=== PATIENT | male | born 1990 | race African-American/Black ===

== ENCOUNTER 2018-11-22 09:03 | Inpatient (IN) | payer OTHER ==
[2018-11-22 09:23] VITALS: BMI 22.6
--- NOTE | 2018-11-22 10:34 | HP ---
CIWA Score Nausea/Vomitin Muscle Tremors: 2 Anxiety: 2 Agitation: 2 Paroxysmal Sweats: 2 Orientation: 0-Oriented Tacttile Disturbances: 1-Very Mild Itch/Numbness Auditory Disturbances: 1-Very Mild Visual Disturbances: 0-None Headache: 2-Mild CIWA-Ar Total Score: 14 - Admission Criteria OASAS Guidelines: Admission for Medically Managed Detox: Requires at least one of the followin. CIWA greater than 12 2. Seizures within the past 24 hours 3. Delirium tremens within the past 24 hours 4. Hallucinations within the past 24 hours 5. Acute intervention needed for co occurring medical disorder 6. Acute intervention needed for co occurring psychiatric disorder 7. Severe withdrawal that cannot be handled at a lower level of care (continued vomiting, continued diarrhea, abnormal vital signs) requiring intravenous medication and/or fluids 8. Patient presents the following: CIWA greater than 12 Admission Criteria Met: Admission criteria met Admission ROS [facility] Chief Complaint: I need help to stop drinkg alcohol,cocaine Allergies/Adverse Reactions: Allergies Allergy/AdvReac Type Severity Reaction Status Date / Time No Known Drug Allergies Allergy Verified 11/22/18 09:57 History of Present Illness: this 28 years old male with alcohol and cocaine dependence seeking detox, withdrawal symptom,last treatment 05/31 ,not completed,did not recall facity nicotine dependence weight loss syncope longest sobriety 3 months plan to go to rehab seen in [place] last night Exam Limitations: No Limitations - Ebola screening Have you traveled outside of the country in the last 21 days: No Have you had contact with anyone from an Ebola affected area: No Have you been sick,other than usual withdrawal symptoms: No Do you have a fever: No - Review of Systems Constitutional: Loss of Appetite, Malaise, Night Sweats, Changes in sleep, Weakness, Unintentional Wgt. Loss EENT: reports: Tearing, Nose Congestion Respiratory: reports: No Symptoms reported Cardiac: reports: No Symptoms Reported GI: reports: Nausea, Poor Appetite, Abdominal cramping : reports: No Symptoms Reported Musculoskeletal: reports: Back Pain, Muscle Pain Integumentary: reports: Dryness Neuro: reports: Headache, Tremors Endocrine: reports: No Symptoms Reported Hematology: reports: No Symptoms Reported Psychiatric: reports: No Sypmtoms Reported, Judgement Intact, Mood/Affect Appropiate, Orientated x3 Other Systems: Reviewed and Negative Patient History - Patient Medical History Hx Asthma: No Hx Chronic Obstructive Pulmonary Disease (COPD): No Hx Cancer: No Hx Cardiac Disorders: No Hx Congestive Heart Failure: No Hx Hypertension: No Hx Hypercholesterolemia: No Hx Pacemaker: No HX Cerebrovascular Accident: No Hx Seizures: No Hx Dementia: No Hx Diabetes: No Hx Gastrointestinal Disorders: No Hx Liver Disease: No Hx Genitourinary Disorders: No Hx Sexually Transmitted Disorders: No Hx Renal Disease (ESRD): No Hx Thyroid Disease: No Hx Human Immunodeficiency Virus (HIV): No (last 2018 negctive) Hx Hepatitis C: No Hx Depression: No Hx Suicide Attempt: No Hx Bipolar Disorder: No Hx Schizophrenia: No Other Medical History: no suicidal,no homicidal - Patient Surgical History Past Surgical History: No Hx Neurologic Surgery: No Hx Cataract Extraction: No Hx Cardiac Surgery: No Hx Lung Surgery: No Hx Breast Surgery: No Hx Breast Biopsy: No Hx Abdominal Surgery: No Hx Appendectomy: No Hx Cholecystectomy: No Hx Genitourinary Surgery: No Hx Orthopedic Surgery: Yes (torn ACL repair in 2018) Anesthesia Reaction: No - PPD History Previous Implant?: No Documented Results: Negative w/o proof Implanted On Prior [facility] Admission?: No PPD to be Administered?: Yes - Smoking Cessation Smoking history: Current every day smoker Have you smoked in the past 12 months: Yes Aproximately how many cigarettes per day: 20 Cigars Per Day: 0 Hx Chewing Tobacco Use: No Initiated information on smoking cessation: Yes 'Breaking Loose' booklet given: 11/22/18 - Substance & Tx. History Hx Alcohol Use: Yes Hx Substance Use: Yes Substance Use Type: Alcohol, Cocaine Hx Substance Use Treatment: Yes (05/31 did not recll facility,not completed) - Substances Abused Alcohol Route: Oral Frequency: Daily Amount used: 1 liter of vodka Age of first use: 14 Date of Last Use: 11/21/18 Cocaine Route: Inhalation Frequency: Daily Amount used: 2 grams Age of first use: 23 Date of Last Use: 11/21/18 don Route: Oral Frequency: Daily Amount used: 0.5-1 gram Age of first use: 27 Date of Last Use: 11/21/18 Family Disease History - Family Disease History Family History: Denies Admission Physical Exam BHS - Vital Signs Vital Signs: Vital Signs - 24 hr 11/22/18 09:19 Temperature 96.2 F L Pulse Rate 83 Respiratory 20 Rate Blood Pressure 137/75 - Physical General Appearance: Yes: Moderate Distress, Tremorous, Irritable, Sweating, Anxious HEENTM: Yes: Normal ENT Inspection, Normocephalic, Normal Voice, SALMA Respiratory: Yes: Lungs Clear, Normal Breath Sounds, No Respiratory Distress Neck: Yes: Within Normal Limits, Supple, Trachea in good position Breast: Yes: Within Normal Limits Cardiology: Yes: Within Normal Limits, Regular Rhythm, Regular Rate, S1, S2 Abdominal: Yes: Normal Bowel Sounds, Non Tender, Flat, Soft, Organomegaly Genitourinary: Yes: Within Normal Limits Back: Yes: Muscle Spasm Musculoskeletal: Yes: Gait Steady, Back pain Extremities: Yes: Normal Range of Motion, Tremors Neurological: Yes: foundation coordinator II-XII NML intact, Fully Oriented, Alert, Motor Strength 5/5 Integumentary: Yes: Dry Lymphatic: Yes: Within Normal Limits - Diagnostic (1) Alcohol dependence with uncomplicated withdrawal Current Visit: Yes Status: Acute (2) Cocaine dependence Current Visit: Yes Status: Acute (3) Syncope Current Visit: Yes Status: Acute (4) Nicotine dependence Current Visit: Yes Status: Acute (5) Weight loss Current Visit: Yes Status: Acute Cleared for Admission [facility] - Detox or Rehab [facility] Level of Care: Medically Managed Detox Regimen/Protocol: Librium [facility] Breath Alcohol Content Breath Alcohol Content: 0 Urine Drug Screen - Results Drug Screen Negative: No Urine Drug Screen Results: SHANITA-Cocaine
[2018-11-22] MEDS ORDERED: chlordiazePOXIDE HCL 25 MG CAPSULE PO PRN (10:44)
[2018-11-22] MEDS ORDERED: MAG HYDROX/AL HYDROX/SIMETH 30 ML UNIT-DOSE CUP PO PRN (10:44)
[2018-11-22] MEDS ORDERED: MAGNESIUM CITRATE 300 ML BOTTLE PO PRN (10:44)
[2018-11-22] MEDS ORDERED: guaiFENesin/D-METHORPHAN HB 10 ML UNIT-DOSE CUPS PO PRN (10:44)
[2018-11-22] MEDS ORDERED: LOPERAMIDE HCL 2 MG CAPSULE PO PRN (10:44)
[2018-11-22] MEDS ORDERED: MAGNESIUM HYDROX 2400MG/30ML ORAL SUSPENSION 30 ML CUP PO PRN (10:44)
[2018-11-22] MEDS ORDERED: MENTHOL/PHENOL 1 EACH UD MM PRN (10:44)
[2018-11-22] MEDS ORDERED: P-EPHED 60MG/TRIPROLIDI 2.5MG TABLET PO PRN (10:44)
[2018-11-22] MEDS: ACETAMINOPHEN 325 MG TABLET (FP) PO PRN (13:49)
--- NOTE | 2018-11-22 14:42 | EKG ---
Test Reason : Blood Pressure : / mmHG Vent. Rate : 075 BPM Atrial Rate : 075 BPM P-R Int : 144 ms QRS Dur : 078 ms QT Int : 394 ms P-R-T Axes : 046 072 061 degrees QTc Int : 439 ms NORMAL SINUS RHYTHM NORMAL ECG NO PREVIOUS ECGS AVAILABLE Confirmed by LAUREN HANSEN, ETHAN ([id number]) on 11/22/2018 2:41:46 PM Referred By: Confirmed By:ETHAN AGUILAR MD
[2018-11-22] MEDS: chlordiazePOXIDE HCL 25 MG CAPSULE PO SCH ×2 (18:19→23:20)
[2018-11-22 21:10] LABS: URINE APPEARANCE CLEAR; URINE BILIRUBIN NEGATIVE (<2.0 mg/dL); URINE COLOR YELLOW; URINE GLUCOSE (UA) NEGATIVE (NEGATIVE); URINE KETONE NEGATIVE (NEGATIVE); URINE LEUK ESTERASE 1+ (NEGATIVE); URINE NITRITE NEGATIVE (NEGATIVE); URINE PROTEIN NEGATIVE (NEGATIVE); URINE UROBILINOGEN NEGATIVE mg/dL (0.2-1.0)
[2018-11-22 21:13] LABS: EPI CELLS RARE /HPF (FEW); URINE MUCUS RARE
[2018-11-22] MEDS ORDERED: MELATONIN 5 MG TABLETS PO PRN (22:00)
[2018-11-22] MEDS: THIAMINE HCL 100 MG TABLET (FP) PO SCH (23:20)
[2018-11-23] MEDS: chlordiazePOXIDE HCL 25 MG CAPSULE PO SCH ×4 (06:58→22:44)
[2018-11-23] MEDS: ACETAMINOPHEN 325 MG TABLET (FP) PO PRN ×3 (09:09→20:28)
[2018-11-23] MEDS: PRENATAL VITAMINS W/ FOLIC ACID TABLET (FP) PO SCH (09:10)
[2018-11-23 10:40] LABS: HEMATOCRIT 40.8 % (35.4-49); HEMOGLOBIN 12.8 GM/dL (11.7-16.9); MCHC 31.4 g/dl (32.0-35.9); MEAN CELL VOLUME 85.8 fl (80-96); MEAN PLT VOLUME 10.1 fl (7.5-11.1); PLATELET COUNT 206 K/MM3 (134-434); RBC 4.75 M/mm3 (4.00-5.60); RDW 15.3 % (11.9-15.9); WHITE BLOOD COUNT 6.4 K/mm3 (4.0-10.0)
[2018-11-23 10:59] LABS: ALBUMIN 3.8 g/dl (3.4-5.0); ALK PHOS 98 U/L (45-117); ANION GAP 8 MMOL/L (8-16); BILIRUBIN,TOTAL 0.7 mg/dL (0.2-1); BLOOD UREA NITROGEN 15 mg/dL (7-18); CALCIUM 8.7 mg/dL (8.5-10.1); CHLORIDE 106 mmol/L (98-107); CO2 26 mmol/L (21-32); CREATININE 0.8 mg/dL (0.55-1.3); GLUCOSE,RANDOM 109 mg/dL (74-106); POTASSIUM 4.3 mmol/L (3.5-5.1); SGOT/AST 28 U/L (15-37); SGPT/ALT 30 U/L (13-61); SODIUM 139 mmol/L (136-145); TOT PROT 7.1 g/dl (6.4-8.2)
[2018-11-23] MEDS: NICOTINE POLACRILEX 2 MG GUM BUC PRN (12:34)
[2018-11-23] MEDS: NICOTINE 21 MG/24 HOURS TOPICAL PATCH TD SCH ×2 (12:36→14:14)
--- NOTE | 2018-11-23 13:15 | PN ---
S CIWA - CIWA Score Nausea/Vomitin-Mild Nausea/No Vomiting Muscle Tremors: 2 Anxiety: 3 Agitation: 2 Paroxysmal Sweats: 1-Minimal Palms Moist Orientation: 1-Uncertain about Date Tacttile Disturbances: 0-None Auditory Disturbances: 0-None Visual Disturbances: 0-None Headache: 2-Mild CIWA-Ar Total Score: 12 S Progress Note (SOAP) Subjective: c/o feeling "funny" during urination ua indicate uti begin bactrim ds bid x 5 days tremor sweating body aches restlessness Objective: 11/23/18 13:17 Vital Signs Temperature 97.7 F 11/23/18 09:31 Pulse Rate 71 11/23/18 09:31 Respiratory Rate 17 11/23/18 09:31 Blood Pressure 120/72 11/23/18 09:31 O2 Sat by Pulse Oximetry (%) Laboratory Last Values WBC 6.4 K/mm3 (4.0-10.0) 11/23/18 05:50 RBC 4.75 M/mm3 (4.00-5.60) 11/23/18 05:50 Hgb 12.8 GM/dL (11.7-16.9) 11/23/18 05:50 Hct 40.8 % (35.4-49) 11/23/18 05:50 MCV 85.8 fl (80-96) 11/23/18 05:50 MCH 27.0 pg (25.7-33.7) 11/23/18 05:50 MCHC 31.4 g/dl (32.0-35.9) L 11/23/18 05:50 RDW 15.3 % (11.9-15.9) 11/23/18 05:50 Plt Count 206 K/MM3 (134-434) 11/23/18 05:50 MPV 10.1 fl (7.5-11.1) 11/23/18 05:50 Sodium 139 mmol/L (136-145) 11/23/18 05:50 Potassium 4.3 mmol/L (3.5-5.1) 11/23/18 05:50 Chloride 106 mmol/L (98-107) 11/23/18 05:50 Carbon Dioxide 26 mmol/L (21-32) 11/23/18 05:50 Anion Gap 8 MMOL/L (8-16) 11/23/18 05:50 BUN 15 mg/dL (7-18) 11/23/18 05:50 Creatinine 0.8 mg/dL (0.55-1.3) 11/23/18 05:50 Creat Clearance w eGFR > 60 (>60) 11/23/18 05:50 Random Glucose 109 mg/dL (74-106) H 11/23/18 05:50 Calcium 8.7 mg/dL (8.5-10.1) 11/23/18 05:50 Total Bilirubin 0.7 mg/dL (0.2-1) 11/23/18 05:50 AST 28 U/L (15-37) 11/23/18 05:50 ALT 30 U/L (13-61) 11/23/18 05:50 Alkaline Phosphatase 98 U/L (45-117) 11/23/18 05:50 Total Protein 7.1 g/dl (6.4-8.2) 11/23/18 05:50 Albumin 3.8 g/dl (3.4-5.0) 11/23/18 05:50 Urine Color Yellow 11/22/18 15:10 Urine Appearance Clear 11/22/18 15:10 Urine pH 6.0 (5.0-8.0) 11/22/18 15:10 Ur Specific [place] 1.027 (1.010-1.035) 11/22/18 15:10 Urine Protein Negative (NEGATIVE) 11/22/18 15:10 Urine Glucose (UA) Negative (NEGATIVE) 11/22/18 15:10 Urine Ketones Negative (NEGATIVE) 11/22/18 15:10 Urine Blood Negative (NEGATIVE) 11/22/18 15:10 Urine Nitrite Negative (NEGATIVE) 11/22/18 15:10 Urine Bilirubin Negative (<2.0 mg/dL) 11/22/18 15:10 Urine Urobilinogen Negative mg/dL (0.2-1.0) 11/22/18 15:10 Ur Leukocyte Esterase 1+ (NEGATIVE) H 11/22/18 15:10 Urine WBC (Auto) 57 /hpf (3-5) 11/22/18 15:10 Urine RBC (Auto) 3 /hpf (0-3) 11/22/18 15:10 Ur Epithelial Cells Rare /HPF (FEW) 11/22/18 15:10 Urine Mucus Rare 11/22/18 15:10 RPR Titer Nonreactive (NONREACTIVE) 11/23/18 05:50 lab noted uti Assessment: 11/23/18 13:17 withdrawal sx uti Plan: continue detox bactrim ds po bid x 5 days
[2018-11-23] MEDS: SULFAMETHOXAZOLE/TRIMETHOPRIM 800MG/160MG D.S. TABLET PO SCH ×2 (14:09→22:44)
[2018-11-23] MEDS: IBUPROFEN 400 MG TABLET (FP) PO PRN (17:28)
[2018-11-23] MEDS: THIAMINE HCL 100 MG TABLET (FP) PO SCH (22:44)
[2018-11-24] MEDS ORDERED: SULFAMETHOXAZOLE/TRIMETHOPRIM 800MG/160MG D.S. TABLET PO ONE (00:48)
[2018-11-24] MEDS: hydrOXYzine PAMOATE 50 MG CAPSULE (FP) PO PRN ×2 (01:09→21:53)
[2018-11-24] MEDS: ACETAMINOPHEN 325 MG TABLET (FP) PO PRN (01:09)
[2018-11-24] MEDS: chlordiazePOXIDE HCL 25 MG CAPSULE PO SCH ×2 (06:23→10:42)
[2018-11-24] MEDS: NICOTINE 21 MG/24 HOURS TOPICAL PATCH TD SCH (10:42)
[2018-11-24] MEDS: SULFAMETHOXAZOLE/TRIMETHOPRIM 800MG/160MG D.S. TABLET PO SCH ×2 (10:42→21:52)
[2018-11-24] MEDS: PRENATAL VITAMINS W/ FOLIC ACID TABLET (FP) PO SCH (10:43)
--- NOTE | 2018-11-24 15:52 | PN ---
[facility] CIWA - CIWA Score Nausea/Vomitin-No Nausea/No Vomiting Muscle Tremors: 3 Anxiety: 3 Agitation: 0-Normal Activity Paroxysmal Sweats: No Perspiration Orientation: 2-Disoriented Date<2 days Tacttile Disturbances: 2-Mild Itch/Numbness/Burn Auditory Disturbances: 0-None Visual Disturbances: 2-Mild Sensitivity Headache: 0-None Present CIWA-Ar Total Score: 12 BHS Progress Note (SOAP) Subjective: Tremors, Interrupted Sleep. Objective: PATIENT A & O X 2 (UNCERTAIN ABOUT CURRENT DAY / DATE). PATIENT OBSERVED AMBULATING ON UNIT. IN NO ACUTE DISTRESS. 11/24/18 15:54 Vital Signs Temperature 98.8 F 11/24/18 13:11 Pulse Rate 91 H 11/24/18 13:11 Respiratory Rate 20 11/24/18 13:11 Blood Pressure 136/80 11/24/18 13:11 O2 Sat by Pulse Oximetry (%) Laboratory Tests 11/22/18 11/23/18 11/23/18 15:10 05:50 05:50 WBC 6.4 RBC 4.75 Hgb 12.8 Hct 40.8 MCV 85.8 MCH 27.0 MCHC 31.4 L RDW 15.3 Plt Count 206 MPV 10.1 Sodium 139 Potassium 4.3 Chloride 106 Carbon Dioxide 26 Anion Gap 8 BUN 15 Creatinine 0.8 Creat Clearance w eGFR > 60 Random Glucose 109 H Calcium 8.7 Total Bilirubin 0.7 AST 28 ALT 30 Alkaline Phosphatase 98 Total Protein 7.1 Albumin 3.8 Urine Color Yellow Urine Appearance Clear Urine pH 6.0 Ur Specific [place] 1.027 Urine Protein Negative Urine Glucose (UA) Negative Urine Ketones Negative Urine Blood Negative Urine Nitrite Negative Urine Bilirubin Negative Urine Urobilinogen Negative Ur Leukocyte Esterase 1+ H Urine WBC (Auto) 57 Urine RBC (Auto) 3 Ur Epithelial Cells Rare Urine Mucus Rare RPR Titer 11/23/18 05:50 WBC RBC Hgb Hct MCV MCH MCHC RDW Plt Count MPV Sodium Potassium Chloride Carbon Dioxide Anion Gap BUN Creatinine Creat Clearance w eGFR Random Glucose Calcium Total Bilirubin AST ALT Alkaline Phosphatase Total Protein Albumin Urine Color Urine Appearance Urine pH Ur Specific [place] Urine Protein Urine Glucose (UA) Urine Ketones Urine Blood Urine Nitrite Urine Bilirubin Urine Urobilinogen Ur Leukocyte Esterase Urine WBC (Auto) Urine RBC (Auto) Ur Epithelial Cells Urine Mucus RPR Titer Nonreactive LABS NOTED. Assessment: 11/24/18 15:54 WITHDRAWAL SYMPTOMS. Plan: CONTINUE DETOX. INCREASE DAILY PO FLUID INTAKE. REPEAT UA FOR ADMISSION UA ABNORMALITIES.
[2018-11-24] MEDS: chlordiazePOXIDE 5 MG CAPSULE PO SCH ×2 (17:30→22:01)
[2018-11-24] MEDS: THIAMINE HCL 100 MG TABLET (FP) PO SCH (22:01)
[2018-11-24] MEDS: LIDOCAINE VISCOUS 2% ORAL/TOP 20 ML UNIT-DOSE CUP MM PRN (22:17)
[2018-11-25] MEDS: chlordiazePOXIDE 5 MG CAPSULE PO SCH ×2 (06:25→10:56)
[2018-11-25] MEDS: PRENATAL VITAMINS W/ FOLIC ACID TABLET (FP) PO SCH (10:56)
[2018-11-25] MEDS: SULFAMETHOXAZOLE/TRIMETHOPRIM 800MG/160MG D.S. TABLET PO SCH ×2 (10:56→21:55)
[2018-11-25] MEDS: NICOTINE 21 MG/24 HOURS TOPICAL PATCH TD SCH (10:56)
--- NOTE | 2018-11-25 15:13 | PN ---
BHS Progress Note (SOAP) Subjective: Patient unwilling to discuss Current Withdrawal Symptoms (if any) with [employer] [employer] today. Objective: 11/25/18 15:11 Vital Signs Temperature 97.7 F 11/25/18 13:31 Pulse Rate 81 11/25/18 13:31 Respiratory Rate 18 11/25/18 13:31 Blood Pressure 120/65 11/25/18 13:31 O2 Sat by Pulse Oximetry (%) Laboratory Tests 11/22/18 11/23/18 11/23/18 15:10 05:50 05:50 WBC 6.4 RBC 4.75 Hgb 12.8 Hct 40.8 MCV 85.8 MCH 27.0 MCHC 31.4 L RDW 15.3 Plt Count 206 MPV 10.1 Sodium 139 Potassium 4.3 Chloride 106 Carbon Dioxide 26 Anion Gap 8 BUN 15 Creatinine 0.8 Creat Clearance w eGFR > 60 Random Glucose 109 H Calcium 8.7 Total Bilirubin 0.7 AST 28 ALT 30 Alkaline Phosphatase 98 Total Protein 7.1 Albumin 3.8 Urine Color Yellow Urine Appearance Clear Urine pH 6.0 Ur Specific [place] 1.027 Urine Protein Negative Urine Glucose (UA) Negative Urine Ketones Negative Urine Blood Negative Urine Nitrite Negative Urine Bilirubin Negative Urine Urobilinogen Negative Ur Leukocyte Esterase 1+ H Urine WBC (Auto) 57 Urine RBC (Auto) 3 Ur Epithelial Cells Rare Urine Mucus Rare RPR Titer 11/23/18 05:50 WBC RBC Hgb Hct MCV MCH MCHC RDW Plt Count MPV Sodium Potassium Chloride Carbon Dioxide Anion Gap BUN Creatinine Creat Clearance w eGFR Random Glucose Calcium Total Bilirubin AST ALT Alkaline Phosphatase Total Protein Albumin Urine Color Urine Appearance Urine pH Ur Specific [place] Urine Protein Urine Glucose (UA) Urine Ketones Urine Blood Urine Nitrite Urine Bilirubin Urine Urobilinogen Ur Leukocyte Esterase Urine WBC (Auto) Urine RBC (Auto) Ur Epithelial Cells Urine Mucus RPR Titer Nonreactive LABS NOTED. REPEAT UA NOT YET COLLECTED. Assessment: 11/25/18 15:11 WITHDRAWAL SYMPTOMS. Plan: CONTINUE DETOX. PATIENT SCHEDULED FOR D/C TOMORROW. FOLLOW-UP PRESCRIPTION FOR BACTRIM DS SENT TO PATIENT'S PHARMACY ([facility], [place], [place]) FOR FOLLOW-UP FOR AFTER DISCHARGE FROM DETOX UNIT.
[2018-11-25] MEDS: chlordiazePOXIDE HCL 10 MG CAPSULE PO SCH ×2 (17:58→22:59)
[2018-11-25] MEDS: LIDOCAINE VISCOUS 2% ORAL/TOP 20 ML UNIT-DOSE CUP MM PRN (21:56)
[2018-11-25] MEDS: THIAMINE HCL 100 MG TABLET (FP) PO SCH (21:56)
[2018-11-26 06:25] VITALS: BP 122/72; PULSE 67; TEMP 98.6
[2018-11-26] MEDS: chlordiazePOXIDE HCL 10 MG CAPSULE PO SCH ×2 (07:32→10:08)
[2018-11-26] MEDS: PRENATAL VITAMINS W/ FOLIC ACID TABLET (FP) PO SCH (10:05)
[2018-11-26] MEDS: SULFAMETHOXAZOLE/TRIMETHOPRIM 800MG/160MG D.S. TABLET PO SCH (10:06)
[2018-11-26] MEDS: NICOTINE 21 MG/24 HOURS TOPICAL PATCH TD SCH (10:07)
[2018-11-26] MEDS: NICOTINE POLACRILEX 2 MG GUM BUC PRN (10:08)
[2018-11-26] MEDS: LIDOCAINE VISCOUS 2% ORAL/TOP 20 ML UNIT-DOSE CUP MM PRN (10:08)
[2018-11-26] MEDS: IBUPROFEN 400 MG TABLET (FP) PO PRN (10:49)
--- NOTE | 2018-11-26 14:16 | DS ---
[facility] Detox Discharge Summary Admission Date: 11/22/18 Discharge Date: 11/26/18 - History Present History: Alcohol Dependence, Cocaine Dependence Additional Comments: Patient discharged safely. Admitted to [facility] inpatient detox. Pertinent Past History: Alcohol dependence Cocaine dependence Nicotine dependence Methamphetamine dependence ([place]) - Physical Exam Results Vital Signs: Vital Signs Temperature 98.6 F 11/26/18 06:24 Pulse Rate 67 11/26/18 06:24 Respiratory Rate 18 11/26/18 06:24 Blood Pressure 122/72 11/26/18 06:24 O2 Sat by Pulse Oximetry (%) Pertinent Admission Physical Exam Findings: Withdrawal symptoms Laboratory Tests 11/22/18 11/23/18 11/23/18 15:10 05:50 05:50 WBC 6.4 RBC 4.75 Hgb 12.8 Hct 40.8 MCV 85.8 MCH 27.0 MCHC 31.4 L RDW 15.3 Plt Count 206 MPV 10.1 Sodium 139 Potassium 4.3 Chloride 106 Carbon Dioxide 26 Anion Gap 8 BUN 15 Creatinine 0.8 Creat Clearance w eGFR > 60 Random Glucose 109 H Calcium 8.7 Total Bilirubin 0.7 AST 28 ALT 30 Alkaline Phosphatase 98 Total Protein 7.1 Albumin 3.8 Urine Color Yellow Urine Appearance Clear Urine pH 6.0 Ur Specific [place] 1.027 Urine Protein Negative Urine Glucose (UA) Negative Urine Ketones Negative Urine Blood Negative Urine Nitrite Negative Urine Bilirubin Negative Urine Urobilinogen Negative Ur Leukocyte Esterase 1+ H Urine WBC (Auto) 57 Urine RBC (Auto) 3 Ur Epithelial Cells Rare Urine Mucus Rare RPR Titer 11/23/18 05:50 WBC RBC Hgb Hct MCV MCH MCHC RDW Plt Count MPV Sodium Potassium Chloride Carbon Dioxide Anion Gap BUN Creatinine Creat Clearance w eGFR Random Glucose Calcium Total Bilirubin AST ALT Alkaline Phosphatase Total Protein Albumin Urine Color Urine Appearance Urine pH Ur Specific [place] Urine Protein Urine Glucose (UA) Urine Ketones Urine Blood Urine Nitrite Urine Bilirubin Urine Urobilinogen Ur Leukocyte Esterase Urine WBC (Auto) Urine RBC (Auto) Ur Epithelial Cells Urine Mucus RPR Titer Nonreactive Labs reviewed - Treatment Hospital Course: Detox Protocol Followed, Detoxed Safely, Responded well, Discharged Condition Good, Rehab Referral Accepted - Medication Discharge Medications: Ambulatory Orders Sulfamethoxazole/Trimethoprim [Bactrim Ds -] 1 tab PO DAILY 5 Days #10 tablet - Diagnosis (1) Alcohol dependence with uncomplicated withdrawal Status: Acute (2) Cocaine dependence Status: Chronic (3) Nicotine dependence Status: Chronic (4) Methylenedioxymethamphetamine (MDMA) dependence with current use Status: Acute - AMA Did Patient Leave Against Medical Advice: No (Accepted admission to [facility])
== END 2018-11-26 12:30 | disposition other institution (70) | DRG 774 ==
LOC: YASAS 09:03 → Y3N 11:10
PROC: HZ2ZZZZ Detoxification Services for Substance Abuse Treatment (ICD-10-PCS; principal; 2018-11-22)
DX: F10.230 Alcohol dependence with withdrawal, uncomplicated (principal); F14.20 Cocaine dependence, uncomplicated; F15.20 Other stimulant dependence, uncomplicated; F17.210 Nicotine dependence, cigarettes, uncomplicated; N39.0 Urinary tract infection, site not specified; R63.4 Abnormal weight loss; Z68.22 Body mass index [BMI] 22.0-22.9, adult
CPT/HCPCS: 36415; 80053; 81003; 81015; 85027; 86593; 93005; 93010

== ENCOUNTER 2018-11-26 12:33 | Inpatient (IN) | payer OTHER ==
[2018-11-26 12:53] VITALS: BP 131/66; PULSE 92; TEMP 98.7
[2018-11-26] MEDS ORDERED: MENTHOL/PHENOL 1 EACH UD MM PRN (14:20)
[2018-11-26] MEDS ORDERED: ACETAMINOPHEN 325 MG TABLET (FP) PO PRN (14:20)
[2018-11-26] MEDS ORDERED: IBUPROFEN 400 MG TABLET (FP) PO PRN (14:20)
[2018-11-26] MEDS ORDERED: hydrOXYzine PAMOATE 50 MG CAPSULE (FP) PO PRN (14:20)
[2018-11-26] MEDS ORDERED: P-EPHED 60MG/TRIPROLIDI 2.5MG TABLET PO PRN (14:20)
[2018-11-26] MEDS ORDERED: LOPERAMIDE HCL 2 MG CAPSULE PO PRN (14:20)
[2018-11-26] MEDS ORDERED: MAGNESIUM HYDROX 2400MG/30ML ORAL SUSPENSION 30 ML CUP PO PRN (14:20)
[2018-11-26] MEDS ORDERED: guaiFENesin/D-METHORPHAN HB 10 ML UNIT-DOSE CUPS PO PRN (14:20)
[2018-11-26] MEDS ORDERED: MAG HYDROX/AL HYDROX/SIMETH 30 ML UNIT-DOSE CUP PO PRN (14:20)
[2018-11-26] MEDS ORDERED: MAGNESIUM CITRATE 300 ML BOTTLE PO PRN (14:20)
--- NOTE | 2018-11-26 14:20 | HP ---
SARAHI HANSEN Rehab Assess/Revision - Admission History Admitted to Rehab from: [facility] Date of Admission to Rehab: 11/26/2018 - Vital signs Vital Signs: Vital Signs Period Temp Pulse Resp BP Sys/[place] Pulse Ox Last 24 Hr 98.7 F-98.7 F 92-92 18-18 131-131/66-66 - Findings Detox History & Physical reviewed: Yes Concur with findings: Yes Inpatient Rehab Admission - Initial Determination Are CD services needed?: Yes Free of communicable disease: Yes Not in need of hospitalization: Yes - Rehab Admission Criteria Poor recovery environment: Yes Patient is meeting Inpatient Rehab admission criteria:: Yes
--- NOTE | 2018-11-26 15:06 | HP ---
Psychiatrist Admission - Data Date of interview: 11/26/18 Admission source: 3N Identifying data: This is the first [facility] admission for this 28 years old single Black male, unemployed on public assistance, domiciled living with his sister Medical History: Significant for orthosurgery for repair of torn ACL in 2018. Smokes cigarettes 1 ppd Psychiatric History: Denies history of previous psychiatric treatment Physical/Sexual Abuse/Trauma History: Denies history of emotional, physical or sexual abuse as well as DV relationship. No service Vital Signs: Vital Signs - 24 hr 11/26/18 11/26/18 12:53 13:19 Temperature 98.7 F 98.7 F Pulse Rate 92 H 92 H Respiratory 18 18 Rate Blood Pressure 131/66 131/66 Allergies/Adverse Reactions: Allergies Allergy/AdvReac Type Severity Reaction Status Date / Time No Known Drug Allergies Allergy Verified 11/26/18 13:21 Date of last physical exam: 11/22/18 Concur with the findings of this exam: Yes - Substance Abuse/Tx History Hx Alcohol Use: Yes Hx Substance Use: Yes (Started don at 27, consumes up to one gram daily. Last used on 11/21/18) Substance Use Type: Alcohol (Started drinking alcohol at age 14, consumes one liter of vodka daily. Last drank on 11/21/18), Cocaine (Started using cocaine at age 23, consumes 2 gram daily. Last smoked on 11/21/18) Hx Substance Use Treatment: Yes (1-2 previous inpt detox admissions. First inpt rehab) Mental Status Exam - Mental Status Exam Alert and Oriented to: Time, Place, Person Cognitive Function: Fair Patient Appearance: Well Groomed Mood: Hopeful, Euthymic Affect: Appropriate Patient Behavior: Cooperative Speech Pattern: Clear Voice Loudness: Normal Hallucinations: Denies Suicidal Ideation: Denies Homicidal Ideation: Denies Insight/Judgement: Fair Sleep: Poorly Appetite: Good Muscle strength/Tone: Normal Gait/Station: Normal Psychiatric Findings - Problem List ([place] 1, 2,3) (1) Alcohol dependence Current Visit: Yes Status: Acute (2) Cocaine dependence Current Visit: No Status: Chronic (3) Methylenedioxymethamphetamine (MDMA) dependence with current use Current Visit: No Status: Acute (4) Nicotine dependence Current Visit: No Status: Chronic (5) Substance-induced sleep disorder Current Visit: Yes Status: Acute (6) Substance-induced sleep disorder Current Visit: Yes Status: Acute (7) Torn ACL (anterior cruciate ligament) Current Visit: Yes Status: Resolved - Initial Treatment Plan Initial Treatment Plan: 1) Start Melatonin 5 mg po HS prn for insomnia. 2) Monitor progress
[2018-11-26] MEDS ORDERED: BENZOCAINE 20 % GEL TUBE MM PRN (18:30)
[2018-11-26 21:15] LABS: URINE APPEARANCE TURBID; URINE BILIRUBIN NEGATIVE (<2.0 mg/dL); URINE COLOR YELLOW; URINE GLUCOSE (UA) NEGATIVE (NEGATIVE); URINE KETONE TRACE (NEGATIVE); URINE LEUK ESTERASE 1+ (NEGATIVE); URINE NITRITE NEGATIVE (NEGATIVE); URINE PROTEIN 1+ (NEGATIVE); URINE UROBILINOGEN NEGATIVE mg/dL (0.2-1.0)
[2018-11-26 21:53] LABS: URINE BACTERIA MODERATE /hpf (NONE SEEN); URINE MUCUS MANY
[2018-11-26] MEDS ORDERED: MELATONIN 5 MG TABLETS PO PRN (22:00)
[2018-11-26] MEDS ORDERED: THIAMINE HCL 100 MG TABLET (FP) PO SCH (22:00)
--- NOTE | 2018-11-26 23:03 | PN ---
S Progress Note Note: client transferred from detox to rehab still needs 3 dose of bactrim ds started on 11/23 for uti bactrim ds bid x 3 dose first does now
[2018-11-26] MEDS: SULFAMETHOXAZOLE/TRIMETHOPRIM 800MG/160MG D.S. TABLET PO SCH (23:19)
[2018-11-27] MEDS ORDERED: PRENATAL VITAMINS W/ FOLIC ACID TABLET (FP) PO SCH (10:00)
[2018-11-27] MEDS: SULFAMETHOXAZOLE/TRIMETHOPRIM 800MG/160MG D.S. TABLET PO SCH (12:35)
== END 2018-11-27 13:00 | disposition left against medical advice (07) | DRG 770 ==
LOC: YASAS 12:33 → Y5N 12:34
PROVIDERS: ADMIT Psychiatry & Neurology Psychiatry; ATTEND Psychiatry & Neurology Psychiatry
PROC: HZ42ZZZ Group Counseling for Substance Abuse Treatment, Cognitive-Behavioral (ICD-10-PCS; principal; 2018-11-26)
DX: F10.20 Alcohol dependence, uncomplicated (principal); F16.20 Hallucinogen dependence, uncomplicated; F14.20 Cocaine dependence, uncomplicated; F17.210 Nicotine dependence, cigarettes, uncomplicated; F19.282 Other psychoactive substance dependence with psychoactive substance-induced sleep disorder
CPT/HCPCS: 81003; 81015; 87086